=== PATIENT | male | born 1970 | race Two or more races ===

== ENCOUNTER → 2016-11-12 | Outpatient (CLI) | payer OTHER | LOC: BMCIMAGING 15:27 | PROVIDERS: ATTEND Podiatrist Foot & Ankle Surgery | DX: M20.12 Hallux valgus (acquired), left foot (principal); M19.072 Primary osteoarthritis, left ankle and foot ==

== ENCOUNTER → 2018-10-02 | Outpatient (CLI) | payer OTHER | LOC: BMCIMAGING 09:00 | PROVIDERS: ATTEND Podiatrist Foot & Ankle Surgery | DX: Z09 Encounter for follow-up examination after completed treatment for conditions other than malignant neoplasm (principal) ==

== ENCOUNTER → 2018-10-30 | Outpatient (CLI) | payer OTHER | LOC: BMCIMAGING 15:22 | PROVIDERS: ATTEND Podiatrist Foot & Ankle Surgery | DX: Z09 Encounter for follow-up examination after completed treatment for conditions other than malignant neoplasm (principal); Z98.890 Other specified postprocedural states ==

== ENCOUNTER → 2018-11-17 | Outpatient (CLI) | payer OTHER | LOC: BMCIMAGING 08:14 | PROVIDERS: ATTEND Podiatrist Foot & Ankle Surgery | DX: Z09 Encounter for follow-up examination after completed treatment for conditions other than malignant neoplasm (principal); Z98.890 Other specified postprocedural states ==

== ENCOUNTER → 2018-12-16 | Outpatient (CLI) | payer OTHER | LOC: BMCIMAGING 09:10 | PROVIDERS: ATTEND Podiatrist Foot & Ankle Surgery | DX: Z09 Encounter for follow-up examination after completed treatment for conditions other than malignant neoplasm (principal) ==

== ENCOUNTER → 2019-03-02 | Outpatient (CLI) | payer OTHER | LOC: BMCIMAGING 12:32 ==

== ENCOUNTER → 2019-03-04 | Outpatient (CLI) | payer OTHER | LOC: FIMAGING 14:08 ==